=== PATIENT | male | born 1945 | race Caucasian/White ===

== ENCOUNTER 2017-02-15 18:01 | Emergency (ER) | payer MEDICARE, OTHER ==
--- NOTE | 2017-02-15 18:38 | RAD ---
HISTORY: R/O INFILTRATE COMPARISON: No prior. TECHNIQUE: Chest PA and lateral FINDINGS: LUNGS: No active pulmonary disease. PLEURA: No pleural effusion or pneumothorax. Minimal nonspecific right apical pleural thickening. CARDIOVASCULAR: Normal. OSSEOUS STRUCTURES: No significant abnormalities. VISUALIZED UPPER ABDOMEN: Normal. OTHER FINDINGS: None. IMPRESSION: No active disease.
[2017-02-15 18:42] VITALS: BP 128/72; PULSE 72; RESP 18; TEMP 98.8; O2SAT 98
--- NOTE | 2017-02-15 18:44 | C.PDOC ---
History Of Present Illness 71 y/o male presents to the ED with complaints of cough, fever, chills, runny nose and occasional mild SOB since yesterday. Pt denies chest pain, palpitations , abdominal pain, dysuria/hematuria. He denies any PMHx. Time Seen by Provider: 02/15/17 18:15 Chief Complaint (Nursing): Flu-like Symptoms History Per: Patient History/Exam Limitations: no limitations Onset/Duration Of Symptoms: Hrs Current Symptoms Are (Timing): Still Present Sick Contacts (Context): None Associated Symptoms: Fever, Chills, Cough. denies: Vomiting Severity: Mild Past Medical History Reviewed: Historical Data, Nursing Documentation, Vital Signs Vital Signs: Last Vital Signs Temp 98.8 F 02/15/17 18:05 Pulse 72 02/15/17 18:05 Resp 18 02/15/17 18:05 BP 128/72 02/15/17 18:05 Pulse Ox 98 02/15/17 21:15 - Medical History PMH: Peripheral Edema Family History: States: No Known Family Hx - Social History Hx Alcohol Use: No Hx Substance Use: No - Immunization History Hx Tetanus Toxoid Vaccination: No Hx Influenza Vaccination: No Hx Pneumococcal Vaccination: No Review Of Systems Except As Marked, All Systems Reviewed And Found Negative. Constitutional: Positive for: Fever, Chills ENT: Positive for: Nose Discharge Cardiovascular: Negative for: Chest Pain, Palpitations Respiratory: Positive for: Cough, Shortness of Breath (occasional) Gastrointestinal: Negative for: Nausea, Vomiting, Abdominal Pain, Diarrhea Physical Exam - Physical Exam Appears: Non-toxic, No Acute Distress, Other (speaking in full sentences) Skin: Warm, Dry, No Rash Head: Normacephalic Ear(s): Bilateral: Normal Nose: Other (rhinorrhea) Oral Mucosa: Moist Throat: Erythema (mild pharyngeal), No Exudate, No Drooling, Other (no tonsillar swelling) Neck: Normal, Normal ROM, Supple Cardiovascular: Rhythm Regular Respiratory: Normal Breath Sounds, No Rales, No Rhonchi, No Wheezing Gastrointestinal/Abdominal: Normal Exam, Bowel Sounds, Soft, No Tenderness Extremity: Normal ROM, No Pedal Edema Neurological/Psych: Oriented x3 ED Course And Treatment O2 Sat by Pulse Oximetry: 98 (room air) Pulse Ox Interpretation: Normal - Radiology CXR: Interpreted by Me, Viewed By Me (no infiltrates/effusions) CXR Interpretation: Yes: No Acute Disease Progress Note: Plan: CXR ordered and reviewed. Patient given PO Sudafed, PO Azithromycin, and PO Tessalon. Reevaluation Time: 18:50 Reassessment Condition: Improved (Patient reassessed, is resting comfortably, in no current distress/pain. CXR (-) for infiltrates, and patient is afebrile, with normal vitals. He was given Rxs for Azithromycin, Tessalon, albuterol inhaler, Sudafed and instructed to follow up with PMD/clinic in 1-2 days. He understands he should return to ED if symptoms worsen.) Disposition Counseled Patient/Family Regarding: Diagnosis, Need For Followup, Rx Given - Disposition Referrals: [facility] [Outside] Disposition: HOME/ ROUTINE Disposition Time: 18:50 Condition: STABLE Additional Instructions: FOLLOW UP WITH YOUR DOCTOR/CLINIC IN 1-2 DAYS RETURN TO ER IF SYMPTOMS WORSEN USE MEDICATIONS DIRECTED Prescriptions: Albuterol HFA [Ventolin HFA 90 mcg/actuation (8 g)] 0.09 mg IH Q4 PRN #1 puff PRN Reason: Wheezing Azithromycin 1 tab PO DAILY #4 tab Benzonatate [Tessalon Perles] 100 mg PO BID PRN #15 sgl PRN Reason: Cough Pseudoephedrine [Sudafed] 60 mg PO Q6 PRN #12 tab PRN Reason: Nasal Congestion Instructions: Upper Respiratory Infection (ED), Acute Bronchitis (ED) Print Language: TAIWANESE - POA Present On Arrival: None - Clinical Impression Clinical Impression: Upper respiratory infection, Bronchitis - Scribe Statement The provider has reviewed the documentation as recorded by the Katerin Reid Provider Attestation: All medical record entries made by the Katerin were at my direction and personally dictated by me. I have reviewed the chart and agree that the record accurately reflects my personal performance of the history, physical exam, medical decision making, and the department course for this patient. I have also personally directed, reviewed, and agree with the discharge instructions and disposition.
== END 2017-02-15 19:13 | disposition home or self-care (01) ==
LOC: C.ER 18:01
DX: J06.9 Acute upper respiratory infection, unspecified (principal); J40 Bronchitis, not specified as acute or chronic